=== PATIENT | male | born 1985 | race Caucasian/White ===

== ENCOUNTER 2019-12-13 01:57 | Emergency (ER) | payer BC ==
[2019-12-13 02:13] VITALS: BP 140/91; PULSE 65
[2019-12-13] MEDS ORDERED: Metoclopramide 10 MG/2 ML SDV IVPUSH ONE (02:30)
[2019-12-13] MEDS ORDERED: Sodium Chloride 0.9% 1,000 ML IV SCH (02:30)
[2019-12-13] MEDS ORDERED: Ketorolac 30 MG/ML SDV IVPUSH SCH (02:30)
[2019-12-13] MEDS ORDERED: HYDROmorphone 0.5 MG/0.5 ML Syringe IVPUSH ONE (02:30)
--- NOTE | 2019-12-13 02:31 | EDM.PDOC ---
ED HPI GENERAL MEDICAL PROBLEM - General Chief Complaint: Abdominal Pain Stated Complaint: ABDOMINAL PAIN Time Seen by Provider: 12/13/19 02:16 Source of Information: Reports: Patient History Limitations: Reports: No Limitations - History of Present Illness INITIAL COMMENTS - FREE TEXT/NARRATIVE: 34-year-old male attends the ED with severe left lower quadrant abdominal pain with associated nausea and vomiting. Patient states he has had vague left- sided lower mid abdominal pain since December 07. No associated fever chills or diarrhea. He states the pain was vague over the weekend became a little more intense yesterday and precipitated a clinic visit with Dr. Fry. Labs that he showed me on his phone revealed a normal white count at 5.2 and normal differential. Urinalysis revealed 2+ hematuria with 11-20 RBCs per high- power field and no signs of infection. Patient states the pain became much worse tonight and is slightly lower than it was but not rating really into his groin. He has no past history of renal stones. No previous history of abdominal surgery. Pain did make him throw up some mild bilious material tonight. He reports bowel function has been normal with no diarrhea Onset: Gradual Onset Date: 12/08/19 (None since December 07) Duration: Day(s):, Getting Worse, Waxing/Waning Location: Reports: Abdomen (Left lower quadrant of the abdomen but not into the flank.) Quality: Reports: Sharp, Stabbing Severity: Severe Improves with: Reports: None (Noted 10 tonight) Worsens with: Reports: None Context: Denies: Activity, Exercise, Lifting, Sick Contact, Trauma, Other Associated Symptoms: Reports: Loss of Appetite, Nausea/Vomiting. 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.) Left Abdominal Pain Score (Numeric/FACES): 8 - Related Data Allergies Allergy/AdvReac Type Severity Reaction Status Date / Time No Known Allergies Allergy Verified 12/13/19 02:14 Home Meds: Home Meds Ondansetron [Zofran ODT] 4 mg PO Q4H PRN #8 tab.dis 12/13/19 [Rx] oxyCODONE HCl/Acetaminophen [Percocet 10-325 mg Tablet] 1 each PO Q4H PRN #14 tablet 12/13/19 [Rx] Past Medical History - Past Health History Medical/Surgical History: Denies Medical/Surgical History Social & Family History - Tobacco Use Smoking Status *Q: Former Smoker Used Tobacco, but Quit: Yes Month/Year Tobacco Last Used: July 2019 - Living Situation & Occupation Living situation: Reports: Occupation: Employed ED ROS GENERAL - Review of Systems Review Of Systems: See Below Constitutional: Denies: Fever, Chills, Malaise, Weakness, Fatigue, Decreased Appetite, Weight Loss HEENT: Reports: No Symptoms Respiratory: Reports: No Symptoms Cardiovascular: Reports: No Symptoms Endocrine: Reports: No Symptoms GI/Abdominal: Reports: Abdominal Pain (Left lower quadrant abdominal pain slightly lateral i.e. mid axillary line.) : Reports: Frequency Musculoskeletal: Reports: No Symptoms Skin: Reports: No Symptoms Neurological: Reports: No Symptoms Psychiatric: Reports: No Symptoms Hematologic/Lymphatic: Reports: No Symptoms Immunologic: Reports: No Symptoms ED EXAM, GI/ABD - Physical Exam Exam: See Below Exam Limited By: No Limitations General Appearance: Alert, WD/WN, Moderate Distress, Other (Temperature is 36.6. Heart rate 65 and sinus respiratory to 16 with sats of 97% on room air. O blood pressure is 140/91) Eyes: Bilateral: Normal Appearance Throat/Mouth: Normal Inspection, Normal Lips, Normal Oropharynx Respiratory/Chest: No Respiratory Distress, Lungs Clear, Normal Breath Sounds, No Accessory Muscle Use, Chest Non-Tender Cardiovascular: Normal Peripheral Pulses, Regular Rate, Rhythm, No Edema, No Gallop, No Murmur, No Rub GI/Abdominal Exam: Soft, No Mass, Tender (Tenderness is localized to the left lower quadrant of the abdomen without rebound guarding), Abnormal Bowel Sounds ( All sounds are fairly quiesced sent in all 4 quadrants). No: Distended, Guarding, Rigid ( or peritoneal signs), Rebound (Male) Exam: No Hernia Back Exam: Normal Inspection, Full Range of Motion. No: CVA Tenderness (L), CVA Tenderness (R) Extremities: Normal Inspection, Normal Range of Motion, Non-Tender, No Pedal Edema Neurological: Alert, Oriented, CN II-XII Intact, Normal Cognition Psychiatric: Anxious, Other Skin Exam: Warm, Dry (Good deal of pain), Intact, Normal Color, No Rash Course - Vital Signs Last Recorded V/S: Last Vital Signs Temp 36.6 C 12/13/19 02:09 Pulse 65 12/13/19 02:09 Resp 16 12/13/19 02:09 BP 140/91 H 12/13/19 02:09 Pulse Ox 97 12/13/19 02:09 - Orders/Labs/Meds Meds: Medications Discontinued Medications Generic Name Dose Route Start Last Admin Trade Name Flor PRN Reason Stop Dose Admin Hydromorphone HCl 0.5 mg 12/13/19 02:30 12/13/19 02:41 Dilaudid IVPUSH 12/13/19 02:31 0.5 mg ONETIME ONE Administration Hydromorphone HCl 1 mg 12/13/19 03:17 12/13/19 03:26 Dilaudid IVPUSH 12/13/19 03:18 1 mg ONETIME ONE Administration Sodium Chloride 1,000 mls @ 150 mls/hr 12/13/19 02:30 12/13/19 02:41 Normal Saline IV 150 mls/hr ASDIRECTED CAMILLA Administration Ketorolac Tromethamine 30 mg 12/13/19 02:30 12/13/19 02:44 Toradol IVPUSH 30 mg ONETIME [place] Administration Metoclopramide HCl 10 mg 12/13/19 02:30 12/13/19 02:40 Reglan IVPUSH 12/13/19 02:31 10 mg ONETIME ONE Administration - Radiology Interpretation Free Text/Narrative:: 34-year-old male presents to the ED with gradually worsening left lower quadrant abdominal pain that he has been experiencing off and on since December 07 i.e. 5 days ago. Pain became very intense within the last hour awaking him from sleep and making him vomit x1. He been seen in the clinic earlier yesterday by Dr. Goyo Fry i.e. at the [facility] and lab work done showed a white count of 5.2 with a normal differential chemistry was normal the urinalysis showed 2+ hematuria with 11-20 RBCs per per field and no signs of any infection. The concern was whether or not he was developing early diverticulitis and he was placed on Cipro and Flagyl of which she is taken 1 dose of each. He is scheduled for a CT of the abdomen today with oral and IV contrast. Could hold out that long because the pain was too intense and he came to the ED. Benign abdominal examination without any signs of a surgical abdomen. The labs would suggest that he is likely got a kidney stone. Plan IV normal saline 150 mils per hour. Will be given Dilaudid 0.5 mg IV with Toradol 30 mg IV and Reglan 10 mg IV for pain relief. CT of the abdomen and pelvis will be performed with no contrast i.e. per renal protocol - Re-Assessments/Exams Free Text/Narrative Re-Assessment/Exam: 12/13/19 03:05: CT of the abdomen pelvis performed without contrast has been completed. Reveals a 15 mm cyst in the right lobe of the liver which appears congenital. Gallbladder contains no calcified gallstones. Pancreas appears normal spleen appears normal. Adrenals appear normal. There is mild hydronephrosis of the left kidney secondary to a 6 mm stone at the left ureteropelvic junction about an inch below the UPJ. Stomach and bowel appear unremarkable. No evidence of appendicitis and it is well seen. No other abnormalities appreciated in the pelvis. Discussed the findings with the patient. This would correlate with his hematuria. His current pain is coming back and is rated 6 out of 10. Will repeat Dilaudid this time 1 mg IV. His will come and pick him up. I will send him home on Percocet 10/325 mg tablets 1 every 4 hours as needed for pain relief. He will require urinary strainer. Zofran 4 mg sublingual every 4-6 hours necessary for nausea relief. He is to strain the urine once the stone has dropped down the ureter and the pain is more down in the left groin. If stone has not passed in the next 10 to 14 days he will follow-up with Dr. Fry to have a urology consultation arranged. Departure - Departure Time of Disposition: 03:30 Disposition: Home, Self-Care 01 Condition: Fair Clinical Impression: Renal colic on left side - Discharge Information *PRESCRIPTION DRUG MONITORING PROGRAM REVIEWED*: Not Applicable *COPY OF PRESCRIPTION DRUG MONITORING REPORT IN PATIENT TEMITOPE: Not Applicable Prescriptions: Ondansetron [Zofran ODT] 4 mg PO Q4H PRN #8 tab.dis PRN Reason: Abdominal Pain oxyCODONE HCl/Acetaminophen [Percocet 10-325 mg Tablet] 1 each PO Q4H PRN #14 tablet PRN Reason: renal colic Instructions: Kidney Stones, [id number], Renal Colic Referrals: Goyo Fry Jr, MD [Primary Care Provider] - Forms: ED Department Discharge Additional Instructions: Evaluation in the emergency room this morning in regards to severe left lower quadrant abdominal pain that was associated with waking from sleep and causing nausea and vomiting. He is been having left flank low back side pain for the last 4 to 5 days. Lab test done in the clinic earlier revealed some blood cells in the urine suggestive of possible kidney stone. Your history at the time presentation to the ED was also suspect for kidney stone. A CT scan of the abdomen done without contrast did confirm a 6 mm stone just below the beginning of the ureter where it attaches to the kidney called the uretero pelvic junction. This stone has approximately a 65 to 76% chance of passing on its own over the next couple of weeks. Stops moving it stops hurting. The pain starts to travel down towards the left groin you should start to strain your urine to see if you can identify the stone has passed. Once the stone enters into the urinary bladder the pain goes away completely. You were prescribed pain medication Percocet 10/325 mg 1 tablet every 4-6 hours as necessary for pain relief since you were not finding the [place] tablets prescribed earlier giving you any relief of pain. May use Zofran 4 mg under the tongue every 4-6 hours necessary for nausea relief. At this time you can discontinue the Flagyl and Cipro medications that were prescribed earlier. Do not is not passed in the next 10 to 14 days then please follow-up with Dr. Fry to arrange for urology consultation. You would need to return to the ED if you develop fever chills nausea vomiting or simply cannot keep down your pain medicine or pain is not totally controlled. Sepsis Event Note - Evaluation Sepsis Screening Result: No Definite Risk - Focused Exam Date Exam was Performed: 12/13/19 Time Exam was Performed: 19:04
[2019-12-13] MEDS ORDERED: HYDROmorphone 1 MG/ML Syringe IVPUSH ONE (03:17)
--- NOTE | 2019-12-13 09:01 | CT ---
CT abdomen and pelvis Technique: Multiple axial sections were obtained from above the dome of the diaphragm inferiorly through the pubic symphysis. Intravenous contrast and oral contrast has not been given. Study was performed as a ureteral stone protocol. Findings: Left kidney shows dilated collecting system. This finding is caused by an obstructing stone located at the UPJ measuring 4.6 mm. No other ureteral calculi are seen. No abnormal calcifications are seen within the kidneys. Visualized lung bases show nothing acute. Noncontrast appearance of the liver shows a right lobe cyst measuring 1.6 cm. No additional abnormality is appreciated within the liver or within the spleen. Adrenal glands show no nodule. Pancreas shows no abnormality. Gallbladder contains no calcified gallstones. Aorta shows no aneurysm. No retroperitoneal adenopathy or mesenteric abnormalities are seen. Appendix is seen which is normal in size. No pelvic mass or adenopathy is seen. No free fluid or inflammatory change is seen. Bone window settings were reviewed which appear within normal limits for the patient's age. Small fat-containing umbilical hernia is noted. Impression: 1. Obstructing 4.6 mm stone located within the left UPJ. 2. Cyst within the right lobe of the liver. 3. Other findings believed to be incidental. Diagnostic code #3 This report was dictated in MDT I agree with preliminary report from [facility], finalized on 12/13/19, 4:04 AM Central Daylight Time
== END 2019-12-13 03:37 | disposition home or self-care (01) ==
LOC: JD.ED 01:57
DX: N20.2 Calculus of kidney with calculus of ureter (principal); Z87.891 Personal history of nicotine dependence
CPT/HCPCS: 74176; 96361; 96374; 96375; 96376; 99284; J1170; J1885; J2765; J7030